=== PATIENT | female | born 1975 | race American Indian/Alaskan Native ===

== ENCOUNTER 2017-07-01 14:02 | Emergency (ER) | payer BC ==
--- NOTE | 2017-07-01 17:09 | XRay Report ---
FINAL REPORT EXAM: XR CHEST ROUTINE 2V HISTORY: COLD, COUGH, CONGESTION TECHNIQUE: Two views of the chest Comparison: None FINDINGS: Normal heart size. Lungs are clear and well expanded without focal infiltrate or consolidation. Imaged axial skeleton is unremarkable. IMPRESSION: No acute cardiopulmonary disease.
--- NOTE | 2017-07-01 18:14 | Emergency Department Report ---
Minor Respiratory - HPI Chief Complaint: Upper Respiratory Infection Stated Complaint: cough and congestion Time Seen by Provider: 07/01/17 18:02 Duration: 2 Days Pain Location: Chest Severity: moderate Minor Respiratory: Yes Sore Throat, Yes Able to Tolerate Fluids, Yes Cough, Yes Fever, No Rhinorrhea, No Ear Pain, No Sick Contacts, No Hemoptysis, No Chest Pain, No Shortness of Breath ED Review of Systems ROS: Stated complaint: COUGH/BODY PAIN/CHEST HURTS Other details as noted in HPI Comment: All other systems reviewed and negative Constitutional: no symptoms reported, malaise Eyes: as per HPI ENT: as per HPI, throat pain, congestion. denies: ear pain Respiratory: no symptoms reported, cough Cardiovascular: as per HPI. denies: chest pain Endocrine: no symptoms reported. denies: see HPI, excessive sweating, flushing Gastrointestinal: as per HPI. denies: abdominal pain, nausea, vomiting Genitourinary: as per HPI. denies: urgency, dysuria Musculoskeletal: as per HPI. denies: back pain Skin: as per HPI. denies: rash, lesions Neurological: as per HPI. denies: headache, weakness Psychiatric: as per HPI. denies: anxiety, depression Hematological/Lymphatic: as per HPI. denies: easy bleeding ED Past Medical Hx - Past Medical History Previous Medical History?: Yes Hx Diabetes: Yes - Surgical History Past Surgical History?: Yes Additional Surgical History: tubal ligation. uterine ablasion - Social History Smoking Status: Never Smoker Substance Use Type: None - Medications Home Medications: Home Medications Medication Instructions Recorded Confirmed Last Taken Type Benzonatate [Tessalon Perles] 100 mg PO Q8HR PRN #20 capsule 07/01/17 Unknown Rx Cephalexin [Keflex] 500 mg PO Q12HR #20 cap 07/01/17 Unknown Rx Fluticasone [Flonase] 1 spray NS QDAY #1 bottle 07/01/17 Unknown Rx Minor Respiratory Exam - Exam General: Vital signs noted. No distress. Alert and acting appropriately. HEENT: Yes Moist Mucous Membranes, No Pharyngeal Erythema, No Pharyngeal Exudates, No Rhinorrhea, No Conjuctival Injection, No Frontal Tenderness, No Maxillary Tenderness Ear: Neither TM Bulge, Neither TM Erythema, Neither EAC Pain, Neither EAC Discharge Neck: Yes Supple, No Adenopathy Lungs: Yes Good Air Exchange, Yes Cough, No Wheezes, No Ronchi, No Stridor, No Labored Respirations, No Retractions, No Use of Accessory Muscles, No Other Abnormal Lung Sounds Heart: Yes Regular, No Murmur Abdomen: Yes Normal Bowel Sounds, No Tenderness, No Peritoneal Signs Skin: No Rash, No Edema Neurologic: Alert and oriented, no deficits. Musculoskeletal: Unremarkable. ED Course Vital Signs 07/01/17 14:46 Temperature 99.7 F H Pulse Rate 107 H Respiratory 16 Rate Blood Pressure 154/87 O2 Sat by Pulse 98 Oximetry - Reevaluation(s) Reevaluation #1: 07/01/17 20:36 She comes into the ER today with cold cough congestion symptoms for 1 day. She is a diabetic. She initially stated she was taking insulin but then when her blood sugar was elevated she admitted she has not been taking it. Patient is noted to be afebrile her fever was treated and came down with Tylenol. Fluid was noted to be negative. Chest x-ray no acute process. Patient denies shortness of breath or chest pain. Patient does have a cough. w rhonchi which clears with coughing. mild wheezing. medicated with relief. dec wheezing. ambulatory in er wo difficulty. Reevaluation #2: 07/01/17 20:35 medicated for fever dc home w fever 99 and HR 100 long discussion with pt about her compliance with insulin feeling better on dc taking po ambulatory ED Medical Decision Making - Radiology Data Radiology results: report reviewed, image reviewed - Medical Decision Making see note - Differential Diagnosis ro influenza Critical care attestation.: If time is entered above; I have spent that time in minutes in the direct care of this critically ill patient, excluding procedure time. ED Disposition Clinical Impression: Upper respiratory infection, Cough, Bronchitis, Fever, Diabetes, Hyperglycemia , Medically noncompliant Disposition: DC-01 TO HOME OR SELFCARE Is pt being admited?: No Does the pt Need Aspirin: No Condition: Stable Instructions: Diabetes Mellitus Type 2 in Adults (ED), Acute Bronchitis (ED) Prescriptions: Benzonatate [Tessalon Perles] 100 mg PO Q8HR PRN #20 capsule PRN Reason: Cough Cephalexin [Keflex] 500 mg PO Q12HR #20 cap Fluticasone [Flonase] 1 spray NS QDAY #1 bottle Referrals: AUSTIN WADSWORTH MD [Primary Care Provider] - 3-5 Days BARBARA PARK MD [Staff Physician] - 3-5 Days Forms: Work/School Release Form(ED) Time of Disposition: 19:02
[2017-07-01] MEDS ORDERED: ROCEPHIN IM ONE (18:59)
[2017-07-01] MEDS ORDERED: DUONEB *Not for PRN Use IH ONE (18:59)
[2017-07-01] MEDS ORDERED: XYLOCAINE 1% MPF 5 mL INFILTRATI ONE (18:59)
[2017-07-01 19:06] VITALS: BP 159/90
[2017-07-01] MEDS ORDERED: TYLENOL ONE (19:25)
[2017-07-01] MEDS ORDERED: TYLENOL PO ONE (19:28)
== END 2017-07-01 19:51 | disposition home or self-care (01) ==
LOC: ED 14:02
DX: J06.9 Acute upper respiratory infection, unspecified (principal); J40 Bronchitis, not specified as acute or chronic; E11.65 Type 2 diabetes mellitus with hyperglycemia; Z91.14 Patient's other noncompliance with medication regimen
CPT/HCPCS: 71046; 82962; 87400; 96372; 99284; J0696; J2930